=== PATIENT | female | born 1965 | race Caucasian/White ===

== ENCOUNTER 2018-06-24 10:19 | Outpatient (REF) | payer MEDICAID, SELFPAY ==
[2018-06-24 20:12] LABS: ESR 7 MM/HR (0-30)
[2018-06-25 17:39] LABS: CRP, High Sensitivity 1.02 mg/L
== END 2018-06-24 10:39 ==
LOC: NCHCN 10:19
PROVIDERS: Visit Provider Nurse Practitioner Family
DX: R29.898 Other symptoms and signs involving the musculoskeletal system (principal)
CPT/HCPCS: 85652; 86141

== ENCOUNTER 2018-07-22 09:16 | Outpatient (REF) | payer MEDICAID, SELFPAY ==
[2018-07-22 19:22] LABS: Uric Acid 3.4 mg/dL (2.6-6.0)
[2018-07-24 10:32] LABS: Rheumatoid Factor <8 IU/mL (<12.5)
== END 2018-07-22 09:36 ==
LOC: NCHCN 09:16
PROVIDERS: PCP Nurse Practitioner Family; Visit Provider Nurse Practitioner Family
DX: R29.898 Other symptoms and signs involving the musculoskeletal system (principal)
CPT/HCPCS: 84550; 86431

== ENCOUNTER 2018-10-21 09:13 | Outpatient (REF) | payer MEDICAID, SELFPAY ==
[2018-10-21 20:03] LABS: Calculated LDL 72; Cholesterol 163 mg/dL (50-200); HDL Cholesterol 67 mg/dL (40-60); TSH 1.39 uIU/mL (0.358-3.74); Triglyceride 124 mg/dL (30-150)
[2018-10-21 20:17] LABS: Hemoglobin A1C 5.6 % (4.5-6.2)
[2018-10-21 23:19] LABS: HGB 13.5 g/dL (12.0-15.5); Mean Corp. HGB Concentration 32.1 g/dL (32.0-36.0); Mean Corpuscular Hemoglobin 27.9 pg (27.0-33.0); Mean Corpuscular Volume 86.8 fL (80-95); Mean Platelet Volume 10.5 fL (8.0-11.0); Platelet Count 333 x1000/uL (130-400); RBC 4.84 m/cumm (4.00-5.20); RBC Distribution Width 13.2 % (11.7-14.6); White Blood Cell Count 9.74 k/cumm (4.4-10.8)
== END 2018-10-21 09:33 ==
LOC: NCHCN 09:13
PROVIDERS: PCP Nurse Practitioner Family; Visit Provider Nurse Practitioner Family
DX: R53.83 Other fatigue (principal); R73.9 Hyperglycemia, unspecified; E78.5 Hyperlipidemia, unspecified
CPT/HCPCS: 80061; 83721; 85027; 83036; 84443

== ENCOUNTER 2019-06-09 00:27 | Outpatient (CLI) | payer OTHER, SELFPAY ==
[2019-06-09] MEDS: Gadoterate meglumine 20 ML VIAL 18 ML IVP (09:36)
--- NOTE | 2019-06-09 10:55 | DI.MRI_ITS ---
EXAM: MR ABDOMEN WO/W CLINICAL HISTORY: LIVER CYST K76.89. TECHNIQUE: Multiplanar multisequence MRI was performed. COMPARISON: No exams were available for comparison FINDINGS: MR examination of the abdomen was performed according to the usual protocol with additional multiphas ic post contrast imaging utilizing Dotarem infusion. There was significant motion artifact on all pu lse sequences which significantly limits interpretation. Outside imaging reports typical changes related to focal fat adjacent to the falciform ligament. Out side imaging also reports 19 millimeter segment 8 lesion, indeterminate on CT imaging and not visuali zed ultrasonographically. Single T2 weighted pulse sequence on today's examination shows an approxim ately 6 millimeter in diameter high signal lesion in segment 8. Very limited visualization of the li daniel on remaining pulse sequences limits interpretation but no gross lesion identified on the other pu lse sequences and no gross enhancement identified in this area. Kidneys, spleen, adrenals, and pancreas are unremarkable. No biliary ductal abnormality seen. No ad enopathy. Normal abdominal aortic diameter. IMPRESSION: Very limited scan due to patient motion. Indeterminate lesion in right hepatic lobe segment 8. Mult i phasic CT follow-up suggested.
== END 2019-06-09 00:47 ==
PROVIDERS: PCP Nurse Practitioner Family; Visit Provider Nurse Practitioner Family
DX: K76.89 Other specified diseases of liver (principal)
CPT/HCPCS: 74183

== ENCOUNTER 2020-03-29 19:01 | Outpatient (REF) | payer OTHER, SELFPAY ==
--- NOTE | 2020-03-29 10:15 | PAPFT_PTH ---
PAT[facility]: [facility]oper [id number]GE/SX: 55/F ROOM: RE03/29/[address]: Vashti Sheldon : 1965 BED: DIS: 03/29/2020 SPEC #: [id number] RECD: 03/30/20 13:01 STATUS: DANIEL REJabari #: [id number] JOHAN: 03/29/20 10:[address]: Vashti Sheldon DEPT: [facility] Cytology RECD BY: Jewels Bowden Tissues: 1 - CX/ENDOCX FOR PAP SMEARS Procedures: PAP THIN PREP/UVM Screening HPV DNA PROBE Comments: [id number] ([facility]#)
== END 2020-03-29 19:21 ==
LOC: NCHCN 19:01
PROVIDERS: PCP Nurse Practitioner Family; Visit Provider Nurse Practitioner Family
DX: Z12.4 Encounter for screening for malignant neoplasm of cervix (principal); Z01.419 Encounter for gynecological examination (general) (routine) without abnormal findings; Z11.51 Encounter for screening for human papillomavirus (HPV)
CPT/HCPCS: 88142; 87624

== ENCOUNTER 2020-07-13 19:19 | Outpatient (REF) | payer OTHER, SELFPAY ==
[2020-07-14 13:17] LABS: COVID-19 RT-PCR UVMMC Result Negative (Negative)
== END 2020-07-13 19:20 | disposition home or self-care (01) ==
LOC: NCHCN 19:19
PROVIDERS: PCP Nurse Practitioner Family; Visit Provider Physician Assistant
DX: Z20.828 Contact with and (suspected) exposure to other viral communicable diseases (principal)
CPT/HCPCS: U0003

== ENCOUNTER 2021-03-28 15:29 | Outpatient (REF) | payer OTHER, SELFPAY ==
[2021-03-28 19:23] LABS: HCT 43.5 % (36.0-46.0); HGB 13.6 g/dL (11.2-15.7); MCH 27.5 pg (27.0-33.0); MCHC 31.3 % (32.0-36.0); MCV 87.9 fL (80-95); MPV 10.3 fL (8.0-11.0); Platelet Count 318 10^3/uL (130-400); RBC 4.95 10^6/uL (3.93-5.22); RDW 13.2 % (11.7-14.6); RDW-SD 42.3 fL; WBC 6.14 10^3/uL (4.4-10.8)
[2021-03-28 23:10] LABS: BUN 18 mg/dL (7-18); CREATININE 0.6 mg/dL (0.55-1.02); Calcium 9.6 mg/dL (8.5-10.1); Glucose 82 mg/dL (74-106); Total Protein 6.8 g/dL (6.4-8.2)
[2021-03-28 23:11] LABS: ALT 35 U/L (14-59); AST 23 U/L (15-37); Albumin 4.2 g/dL (3.4-5.0); Alkaline Phosphatase 101 U/L (46-116); Anion Gap 8.7 mmol/L (3-11); Bilirubin, Total 0.5 mg/dL (0.2-1.0); CO2 27.3 mmol/L (21.0-32.0); Chloride 108 mmol/L (98-107); Potassium 4.6 mmol/L (3.5-5.1); Sodium 144 mmol/L (136-145); TSH (W/Ref FT4) 1.23 uIU/mL (0.36-3.74)
[2021-04-03 12:21] LABS: IgA 95 mg/dL (85-499); Interpretation (See Note); Tissue Transglutaminase IgA <1.2 U/mL (<4.0)
== END 2021-03-28 15:30 | disposition home or self-care (01) ==
LOC: NCHCN 15:29
PROVIDERS: PCP Nurse Practitioner Family; Visit Provider Nurse Practitioner Family
DX: K21.9 Gastro-esophageal reflux disease without esophagitis (principal); R13.10 Dysphagia, unspecified; K58.9 Irritable bowel syndrome, unspecified
CPT/HCPCS: 80053; 82784; 83516; 85027; 84443

== ENCOUNTER 2022-02-28 16:50 | Outpatient (REF) | payer OTHER, SELFPAY ==
[2022-02-28 21:16] LABS: Anion Gap 7.8 mmol/L (3-11); BUN 23 mg/dL (7-18); CO2 27.2 mmol/L (21.0-32.0); CREATININE 0.7 mg/dL (0.55-1.02); Calcium 9.1 mg/dL (8.5-10.1); Chloride 106 mmol/L (98-107); Estimated GFR 102.07 (mL/min/1.73m2); Glucose 80 mg/dL (74-106); Sodium 141 mmol/L (136-145)
[2022-02-28 21:26] LABS: Hemoglobin A1C 5.8 % (<5.7)
== END 2022-02-28 16:51 | disposition home or self-care (01) ==
LOC: NCHCN 16:50
PROVIDERS: PCP Nurse Practitioner Family; Visit Provider Nurse Practitioner Family
DX: E66.8 Other obesity (principal); R73.09 Other abnormal glucose
CPT/HCPCS: 80048; 83036

== ENCOUNTER 2023-03-06 11:07 | Outpatient (REF) | payer OTHER, SELFPAY ==
[2023-03-06 19:51] LABS: HCT 42.3 % (36.0-46.0); HGB 13.7 g/dL (11.2-15.7); MCH 27.9 pg (27.0-33.0); MCHC 32.4 % (32.0-36.0); MCV 86 fL (80-95); MPV 9.7 fL (8.0-11.0); Platelet Count 364 10^3/uL (130-400); RBC 4.91 10^6/uL (3.93-5.22); RDW 12.7 % (11.7-14.6); WBC 7.15 10^3/uL (4.4-10.8)
[2023-03-06 20:05] LABS: ALT 31 U/L (14-59); AST 20 U/L (15-37); Albumin 3.6 g/dL (3.4-5.0); Alkaline Phosphatase 82 U/L (46-116); Anion Gap 6.1 mmol/L (3-11); BUN 22 mg/dL (7-18); Bilirubin, Total 0.7 mg/dL (0.2-1.0); CO2 26.9 mmol/L (21.0-32.0); CREATININE 0.7 mg/dL (0.55-1.02); Calcium 9.6 mg/dL (8.5-10.1); Chloride 107 mmol/L (98-107); Estimated GFR 101.44 (mL/min/1.73m2); Glucose 89 mg/dL (74-106); Potassium 3.9 mmol/L (3.5-5.1); Sodium 140 mmol/L (136-145); Total Protein 7.2 g/dL (6.4-8.2)
== END 2023-03-06 11:08 | disposition home or self-care (01) ==
LOC: NCHCN 11:07
PROVIDERS: PCP Nurse Practitioner Family; Visit Provider Nurse Practitioner Family
DX: R43.9 Unspecified disturbances of smell and taste (principal); R73.03 Prediabetes
CPT/HCPCS: 80053; 85027

== ENCOUNTER 2024-03-10 15:57 | Outpatient (REF) | payer MEDICAID, SELFPAY ==
[2024-03-10 19:40] LABS: ALT 38 U/L (14-59); AST 27 U/L (15-37); Albumin 3.6 g/dL (3.4-5.0); Alkaline Phosphatase 81 U/L (46-116); Anion Gap 7.8 mmol/L (3-11); BUN 19 mg/dL (7-18); Bilirubin, Total 0.99 mg/dL (0.2-1.0); CO2 26.2 mmol/L (21.0-32.0); CREATININE 0.8 mg/dL (0.55-1.02); Calcium 9.5 mg/dL (8.5-10.1); Chloride 110 mmol/L (98-107); Estimated GFR 85.89 (mL/min/1.73m2); Glucose 81 mg/dL (74-106); Potassium 3.8 mmol/L (3.5-5.1); Sodium 144 mmol/L (136-145); Total Protein 6.9 g/dL (6.4-8.2)
== END 2024-03-10 15:58 | disposition home or self-care (01) ==
LOC: NCHCN 15:57
PROVIDERS: PCP Nurse Practitioner Family; Visit Provider Nurse Practitioner Family
DX: R73.03 Prediabetes (principal)
CPT/HCPCS: 80053

== ENCOUNTER 2025-04-13 18:52 | Outpatient (REF) | payer MEDICAID, SELFPAY | END 2025-04-13 18:53 | disposition home or self-care (01) | LOC: NCHCN 18:52 | PROVIDERS: PCP Nurse Practitioner Family; Visit Provider Nurse Practitioner Family | DX: Z12.4 Encounter for screening for malignant neoplasm of cervix (principal) | CPT/HCPCS: 88142 ==